=== PATIENT | male | born 1940 | race Caucasian/White ===

== ENCOUNTER 2022-05-30 19:12 | Outpatient (CLI) | payer MEDICARE, SELFPAY | END 2022-05-30 19:13 | disposition home or self-care (01) | PROVIDERS: Visit Provider Emergency Medicine Emergency Medical Services | DX: S09.90XA Unspecified injury of head, initial encounter (principal); W18.30XA Fall on same level, unspecified, initial encounter; Y92.049 Unspecified place in boarding-house as the place of occurrence of the external cause | CPT/HCPCS: A0425; A0429 ==

== ENCOUNTER 2022-10-17 14:28 | Outpatient (CLI) | payer MEDICARE, SELFPAY | END 2022-10-17 14:29 | disposition home or self-care (01) | LOC: AMB 10-24 11:09 | PROVIDERS: Visit Provider Family Medicine | DX: R53.1 Weakness (principal); R50.9 Fever, unspecified; R44.3 Hallucinations, unspecified | CPT/HCPCS: A0425; A0427 ==